=== PATIENT | male | born 1950 | race American Indian/Alaskan Native ===

== ENCOUNTER 2017-11-22 10:36 | Emergency (ER) | payer MEDICARE ==
[2017-11-22 11:16] VITALS: BP 123/74
[2017-11-22] MEDS ORDERED: NACL 0.9% 1000 ML 1,000 ML IV ONE (11:28)
--- NOTE | 2017-11-22 11:33 | Emergency Department Report ---
ED Syncope HPI - General Chief Complaint: Syncope Stated Complaint: LBP Time Seen by Provider: 11/22/17 11:22 Source: patient, EMS notes reviewed Exam Limitations: no limitations - History of Present Illness Initial Comments: Patient is 67 years old male who was transferred from a psychiatric facility to be assessed for suicidal ideation after his son in September. He sitter stated that she was at beside with him and she witnessed what happened, she stated that he was sitting in a chair and getting sleepy and she asked him if you want to go to sleep and when he woke up and he started moving, he started leaning on his left side. His blood pressure at that time was low. Patient now is back to his baseline, he denied any similar symptoms before. Patient stated that he did not get enough sleep last night. Timing/Prior Episodes: single episode today Precipitating Factors: Positive: none Context: standing Loss of Consciousness: no loss of consciousness Current Symptoms: back to normal - Related Data Allergies/Adverse Reactions: Allergies shellfish derived Allergy (Verified 11/22/17 11:12) Anaphylaxis ED Review of Systems ROS: Stated complaint: LBP Other details as noted in HPI Comment: All other systems reviewed and negative Constitutional: denies: chills, fever ENT: denies: throat pain, dental pain Respiratory: denies: cough, shortness of breath, SOB with exertion Cardiovascular: denies: chest pain, palpitations, dyspnea on exertion Gastrointestinal: denies: abdominal pain, nausea, vomiting, diarrhea, constipation, hematemesis Genitourinary: denies: urgency, dysuria, frequency, hematuria, discharge Musculoskeletal: denies: back pain, joint swelling Neurological: denies: headache, weakness, numbness, paresthesias Psychiatric: depression ED Past Medical Hx - Past Medical History Hx Hypertension: Yes Hx Psychiatric Treatment: Yes (bipolar schizophrenia) - Surgical History Past Surgical History?: Yes Additional Surgical History: knee surgery - Social History Smoking Status: Current Every Day Smoker Substance Use Type: None ED Physical Exam - General Limitations: No Limitations General appearance: alert, in no apparent distress - Head Head exam: Present: atraumatic, normocephalic, normal inspection - Eye Eye exam: Present: normal appearance, PERRL - ENT ENT exam: Present: normal exam, normal orophraynx, mucous membranes dry, TM's normal bilaterally - Neck Neck exam: Present: normal inspection, full ROM. Absent: tenderness, meningismus, lymphadenopathy, thyromegaly - Respiratory Respiratory exam: Present: normal lung sounds bilaterally. Absent: respiratory distress, wheezes, rales, rhonchi, stridor, chest wall tenderness, accessory muscle use, decreased breath sounds, prolonged expiratory - Cardiovascular Cardiovascular Exam: Present: regular rate, normal rhythm, normal heart sounds - GI/Abdominal GI/Abdominal exam: Present: soft, normal bowel sounds. Absent: distended, tenderness, guarding, rebound, rigid, organomegaly, mass, bruit, pulsatile mass , hernia - Extremities Exam Extremities exam: Present: normal inspection, full ROM, normal capillary refill - Back Exam Back exam: Present: normal inspection, full ROM. Absent: tenderness, CVA tenderness (R), CVA tenderness (L), muscle spasm, paraspinal tenderness, vertebral tenderness - Neurological Exam Neurological exam: Present: alert, oriented X3, CN II-XII intact. Absent: altered, normal gait, abnormal gait, motor sensory deficit - Skin Skin exam: Present: warm. Absent: dry, intact, normal color, rash, cyanosis, diaphoretic, erythema, urticaria ED Course Vital Signs 11/22/17 11:12 Temperature 97.8 F Pulse Rate 67 Respiratory 16 Rate Blood Pressure 123/74 O2 Sat by Pulse 97 Oximetry - Reevaluation(s) Reevaluation #1: 11/22/17 15:48 Patient observed in the ER, no evidence of syncope patient is status alert oriented 3 he walked to the bathroom several times is no difficulties. I believe this is most likely vagovagal response since the patient did not sleep well last night and he was sitting in the chair for a while. ED Medical Decision Making - Lab Data Result diagrams: 11/22/17 11:50 11/22/17 11:50 - EKG Data -: EKG Interpreted by Ms EKG shows normal: sinus rhythm Rate: normal - EKG Data Interpretation: no acute changes - Radiology Data Radiology results: report reviewed Referring Physician: ELMER YOUNG Patient Name: STACEY ARTEAGA Date of : 1950 Sex: Male Report Date: 2017-11-22 Report Status: Finalized Findings [address] [address] Cat Scan Report Signed Patient: STACEY ARTEAGA MR#: [id number] : 1950 Acct:[id number] Age/Sex: 67 / M ADM Date: 11/22/17 Loc: ED Attending Dr: Ordering Physician: ELMER YOUNG Date of Service: 11/22/17 Procedure(s): CT head/brain wo con Accession Number(s): [id number] cc: ELMER YOUNG CT HEAD WITHOUT CONTRAST: HISTORY: Syncope. TECHNIQUE: Sequential 2.5mm CT images. COMPARISON: none. FINDINGS: Cerebral Parenchyma: Within normal limits. Cerebellum: Within normal limits. Brainstem: Within normal limits. Ventricles: Normal. Sella: Normal. Extra-axial spaces: Normal. Basal Cisterns: Normal. Intracranial Hemorrhage: None. Midline Shift: None. Calvarium: Normal. Sinuses: Normal. Mastoid Air Cells: Normal. Visualized Orbits: Normal. IMPRESSION: Cranial CT scan within normal limits. Transcribed By: TTR Dictated By: ROMY BEE JR, MD Electronically Authenticated By: ROMY BEE JR, MD Signed Date/Time: 11/22/171208 DD/ 08 TD/TT: 11/22/171208 Critical care attestation.: If time is entered above; I have spent that time in minutes in the direct care of this critically ill patient, excluding procedure time. ED Disposition Clinical Impression: Syncope and collapse Disposition: DC/TX-65 PSY HOSP/PSY UNIT Is pt being admited?: No Condition: Stable Instructions: Syncope (ED) Referrals: PRIMARY CARE, [Primary Care Provider] - 3-5 Days
--- NOTE | 2017-11-22 11:57 | XRay Report ---
AP CHEST: HISTORY: Syncope AP view of the chest demonstrates a normal mediastinal and cardiac contour with clear lungs and normal bony and soft tissue structures. Right shoulder arthroplasty changes are partially imaged. IMPRESSION: Unremarkable AP chest.
--- NOTE | 2017-11-22 12:14 | Cat Scan Report ---
CT HEAD WITHOUT CONTRAST: HISTORY: Syncope. TECHNIQUE: Sequential 2.5mm CT images. COMPARISON: none. FINDINGS: Cerebral Parenchyma: Within normal limits. Cerebellum: Within normal limits. Brainstem: Within normal limits. Ventricles: Normal. Sella: Normal. Extra-axial spaces: Normal. Basal Cisterns: Normal. Intracranial Hemorrhage: None. Midline Shift: None. Calvarium: Normal. Sinuses: Normal. Mastoid Air Cells: Normal. Visualized Orbits: Normal. IMPRESSION: Cranial CT scan within normal limits.
[2017-11-22 12:19] LABS: Hemoglobin 12.5 gm/dl (11.8-15.2); Mean Corpuscular HGB Conc 33 % (32-34); Mean Corpuscular Hemoglobin 30 pg (28-32); Mean Corpuscular Volume 91 fl (84-94); Platelet Count 192 K/mm3 (140-440); Red Blood Count 4.19 M/mm3 (3.65-5.03); Red Cell Distribution Width 16.7 % (13.2-15.2)
[2017-11-22 12:28] LABS: Alanine Aminotransferase 14 units/L (7-56); Albumin 3.5 g/dL (3.9-5); BUN/Creatinine Ratio 20; Blood Urea Nitrogen 16 mg/dL (9-20); Calcium 9.1 mg/dL (8.4-10.2); Hemolysis Index 13
[2017-11-22 13:01] LABS: Anisocytosis Few; Band Neutrophils # (Manual) 0.2 K/mm3; Basophils % (Manual) 0 % (0.0-1.8); Total Cells Counted 100
== END 2017-11-22 17:09 ==
LOC: ED 10:36
DX: R55 Syncope and collapse (principal); I10 Essential (primary) hypertension; F31.89 Other bipolar disorder; F20.9 Schizophrenia, unspecified; F17.200 Nicotine dependence, unspecified, uncomplicated; Z91.013 Allergy to seafood
CPT/HCPCS: 36415; 70450; 71010; 80053; 84484; 85007; 85025; 85379; 93005; 93010